=== PATIENT | male | born 1995 | race Asian ===

== ENCOUNTER 2019-09-08 23:42 | Emergency (ER) | payer OTHER ==
[2019-09-08 23:47] VITALS: BP 163/113
--- NOTE | 2019-09-09 00:01 | ED ---
Throat Pain/Nasal Congestion - HPI Summary HPI Summary: This pt is a 23 Y/O M presenting to [facility] for an irritated L eye that is described as a 2/10 in pain. He states that his R eye is normal. He has had a watery discharge since the onset on 09/05/2019. He states that he has swollen skin in-between both eyes and states that he noticed the swelling after his eye became red. He states that the swelling and rash began after his eye was infected. He states that he had a phone screening through [facility] medical services who stated he should go to [facility]. He was given pink eye relief medication OTC. He states that his eye has been swelling and the severity increased 1-2 days after the onset. He states that he has used saline solution to attempt and help his symptoms. He states that he has been fatigued recently. He denies any fevers, chills, N/V, headaches, and SOB. He has no pertinent PMHx. - History of Current Complaint Chief Complaint: EDEyeProblem Time Seen by Provider: 09/08/19 23:49 Hx Obtained From: Patient Onset/Duration: Sudden Onset, Lasting Days - 3, Still Present Severity: Mild - 3 Cough: None - Allergies/Home Medications Allergies/Adverse Reactions: Allergies Allergy/AdvReac Type Severity Reaction Status Date / Time No Known Allergies Allergy Verified 09/08/19 23:47 PMH/Surg Hx/FS Hx/Imm Hx Previously Healthy: Yes Endocrine/Hematology History: Denies: Hx Diabetes Cardiovascular History: Denies: Hx Embolism, Hx Hypertension Respiratory History: Reports: Hx Asthma GI History: Denies: Hx Cirrhosis - Cancer History Hx Chemotherapy: No Hx Radiation Therapy: No - Surgical History Surgical History: None - Immunization History Immunizations Up to Date: Yes Infectious Disease History: No Infectious Disease History: Denies: Traveled Outside the [place] in Last 30 Days - Family History Known Family History: Negative: Hypertension, Diabetes - Social History Occupation: Student - [employer] Lives: Dormitory/Roommates Alcohol Use: Occasionally Hx Substance Use: No Substance Use Type: Reports: None Hx Tobacco Use: No Smoking Status (MU): Never Smoked Tobacco Review of Systems Positive: Fatigue. Negative: Fever, Chills Eyes: Other - swelling in the middle of his face Positive: Blurred Vision, Drainage - watery, Erythema Negative: Shortness Of Breath Negative: Vomiting, Nausea Positive: Rash - center of face Negative: Headache All Other Systems Reviewed And Are Negative: Yes Physical Exam - Summary Physical Exam Summary: Appearance: Well-appearing, Well-nourished, lying in bed comfortably Skin: Warm, dry, no obvious rash Eyes: sclera anicteric, no conjunctival pallor, Examination of the face shows a strip of swollen and mildly erythematous skin from the base of the forehead to the bridge of the nose, conjunctival inflammation, extra ocular movements and visual acuity are intact. ENT: mucous membranes moist, pharynx appears normal Neck: Supple, nontender Respiratory: Clear to auscultation, no signs of respiratory distress Cardiovascular: Normal S1, S2. No murmurs. Normal distal pulses in tibial and radial bilaterally. Abdomen: Soft, nontender, normal active bowel sounds present Musculoskeletal: Normal, Strength/ROM Intact Neurological: A&Ox3, awake and alert, mentation is normal, speech is fluent and appropriate Psychiatric: affect is normal, does not appear anxious or depressed Triage Information Reviewed: Yes Vital Signs On Initial Exam: Initial Vitals Temp Pulse Resp BP Pulse Ox 99.4 F 88 17 163/113 99 09/08/19 23:44 09/08/19 23:44 09/08/19 23:44 09/08/19 23:44 09/08/19 23:44 Vital Signs Reviewed: Yes Procedures - Sedation Patient Received Moderate/Deep Sedation with Procedure: No Diagnostics - Vital Signs Vital Signs Temp Pulse Resp BP Pulse Ox 09/08/19 23:44 99.4 F 88 17 163/113 99 - Laboratory Lab Statement: Any lab studies that have been ordered have been reviewed, and results considered in the medical decision making process. EENT Course/Dx - Course Course Of Treatment: This pt is a 23 Y/O M presenting to [facility] for an irritated L eye that is described as a 2/10 in pain. He states that his R eye is normal. He has had a watery discharge since the onset on 09/05/2019. He states that he has swollen skin in-between both eyes and states that he noticed the swelling after his eye became red. He states that the swelling and rash began after his eye was infected. He states that he had a phone screening through [facility] who stated he should go to [facility]. He was given pink eye relief medication OTC. He states that his eye has been swelling and the severity increased 1-2 days after the onset. His PE a strip of swollen and mildly erythematous skin from the base of the forehead to the bridge of the nose, conjunctival inflammation, extra ocular movements and visual acuity are intact. He will be discharged home with a Dx of dermatitis and conjunctivitus. - Diagnoses Provider Diagnoses: Conjunctivitis, Dermatitis - Critical Care Time Critical Care Statement: Critical care time is provided exclusive of any time spent performing procedures. Discharge ED - Sign-Out/Discharge Documenting (check all that apply): Patient Departure - discharge - Discharge Plan Condition: Good Disposition: HOME Prescriptions: Betamethasone Sarah 0.1% CRM(NF) [Valisone 0.1% CM(NF)] 1 applic TOPICAL BID #1 tube Olopatadine 0.1% OPHTH (NF) [Patanol 0.1% OPHTH (NF)] 1 drop LEFT EYE BID #1 btl Patient Education Materials: Conjunctivitis (ED) Referrals: Lorenzo Andres MD [Medical Doctor] - Additional Instructions: Please call Dr. Andres's office on Wednesday to be seen. If the problem seems to be worsening over the weekend, particularly if your vision starts to be effected , contact the quality control inspector doctor for the office. They can talk to you over the phone and if necessary usually can see you on the weekend. In the meantime I am treating you with anti inflammatory medications to the eye and skin based on my suspicion that this is an inflammatory problem rather than an infectious problem. - Billing Disposition and Condition Condition: GOOD Disposition: Home - Attestation Statements Document Initiated by Renetta: Yes Documenting Scribe: Taco Tomlinson Provider For Whom Renetta is Documenting (Include Credential): Orlando Rolle MD Scribe Attestation: ITaco, scribed for Orlando Rolle MD on 09/09/19 at 0110. Scribe Documentation Reviewed: Yes Provider Attestation: The documentation as recorded by the Taco adams accurately reflects the service I personally performed and the decisions made by me, Orlando Rolle MD Status of Scribe Document: Viewed
== END 2019-09-09 00:18 | disposition home or self-care (01) ==
LOC: ED 23:42
DX: H10.9 Unspecified conjunctivitis (principal); L30.9 Dermatitis, unspecified; J45.909 Unspecified asthma, uncomplicated
CPT/HCPCS: 99281